=== PATIENT | male | born 1955 | race African-American/Black ===

== ENCOUNTER 2023-03-11 18:38 | Emergency (ER) | payer MEDICARE, MEDICAID ==
[~2023-03-11] VITALS: Ht 170.2 cm; Wt 68.2 kg
[~2023-03-11 18:38] MED LIST: BIDIL PO; BUME1TAB7 PO; CARV25TA32 PO; LISI20TA24 PO; PANT-31 PO; POTA8TAB71 PO; SIMV-260 PO; ZOLP-162 PO
[2023-03-11 18:41] VITALS: BP 153/94; PULSE 98; RESP 19; TEMP 97.9
[2023-03-11] MEDS ORDERED: ACETAMINOPHEN 325 MG TABLET PO ONE (22:30)
[2023-03-11] MEDS ORDERED: METH-661 PO (23:37)
== END 2023-03-11 23:45 | disposition home or self-care (01) ==
LOC: EMS 18:40
DX: S13.4XXA Sprain of ligaments of cervical spine, initial encounter (principal); M54.50 Low back pain, unspecified; V89.2XXA Person injured in unspecified motor-vehicle accident, traffic, initial encounter; Y93.89 Activity, other specified; Y92.89 Other specified places as the place of occurrence of the external cause; Y99.8 Other external cause status
CPT/HCPCS: 72040; 72100; 99284; Z7502; Z7610